=== PATIENT | female | born 1965 | race Caucasian/White ===

== ENCOUNTER 2016-12-10 21:07 | Inpatient (IN) | payer BC ==
[~2016-12-10] VITALS: Ht 152.4 cm; Wt 72.0 kg
[~2016-12-10 21:07] MED LIST: BYSTOLIC10 MG PO; CIPRO500 MG PO; CLARITIN-D 21 TABLET PO; CRESTOR20 MG PO; FOLIC ACID1 MG PO; HYDROCHLOROTHIA25 MG PO; NAPROXEN500 MG PO; PHENTERMINE HCL30 MG PO; REQUIP1 MG PO; TYLENOL EXTRA500 MG PO; VASOTEC20 MG PO; VITAMIN D50000 UNI4 PO
[2016-12-11 13:12] VITALS: BP 116/70
[2016-12-11 19:20] VITALS: BP 138/72
[2016-12-11 20:55] LABS: HEMATOCRIT 35.8 % (36.0-46.0); MCH 28.3 PG (29.0-34.0); MCHC 32.7 G/DL (30.0-36.0); MCV 86.7 FL (83-99); MEAN PLAT.VOLUME 10.1 uM^3 (9.5-12.4); PLATELET COUNT 234 K/uL (156-360); RBC DIS.WIDTH-CV 13.1 % (11.8-14.6); RBC DIS.WIDTH-SD 41.2 % (39-53); RED BLOOD COUNT 4.13 M/uL (3.80-5.20); WHITE BLOOD COUNT 16.5 K/uL (4.1-10.2)
[2016-12-11 21:19] LABS: ANION GAP 5 MEQ/L (2-14); CHLORIDE 104 MEQ/L (99-109); GFR ESTIMATE (CALCULATED) > 59 mL/min/; GLUCOSE 154 mg/dL (70-99); POTASSIUM 4.5 MEQ/L (3.7-5.4); SAMPLE HEMOLYSIS CHECK 0; SAMPLE ICTERIC CHECK 0; SAMPLE LIPEMIA CHECK 0; SODIUM 137 MEQ/L (136-147); UREA NITROGEN (BUN) 18 mg/dL (9-23)
[2016-12-11 23:45] VITALS: BP 102/56
[2016-12-12 03:33] VITALS: BP 109/59
[2016-12-12 07:18] LABS: HEMATOCRIT 32.8 % (36.0-46.0); MCH 29.4 PG (29.0-34.0); MCHC 33.8 G/DL (30.0-36.0); MCV 86.8 FL (83-99); MEAN PLAT.VOLUME 10.9 uM^3 (9.5-12.4); PLATELET COUNT 241 K/uL (156-360); RBC DIS.WIDTH-CV 12.9 % (11.8-14.6); RBC DIS.WIDTH-SD 40.7 % (39-53); RED BLOOD COUNT 3.78 M/uL (3.80-5.20); WHITE BLOOD COUNT 17.7 K/uL (4.1-10.2)
[2016-12-12 07:22] VITALS: BP 120/75
[2016-12-12 07:45] LABS: ANION GAP 7 MEQ/L (2-14); CHLORIDE 103 MEQ/L (99-109); GFR ESTIMATE (CALCULATED) > 59 mL/min/; GLUCOSE 124 mg/dL (70-99); POTASSIUM 4.2 MEQ/L (3.7-5.4); SAMPLE HEMOLYSIS CHECK 0; SAMPLE ICTERIC CHECK 0; SAMPLE LIPEMIA CHECK 0; SODIUM 137 MEQ/L (136-147); UREA NITROGEN (BUN) 16 mg/dL (9-23)
[2016-12-12 11:35] VITALS: BP 131/63
== END 2016-12-12 15:43 | disposition home or self-care (01) | DRG 743 ==
LOC: CANRESERV 21:07 → ENRESERV 21:07 → CANRESERV 21:13 → ENRESERV 12-11 03:45 → 2SOUTH 12-11 10:01 → ENRESERV 12-11 16:06 → 2EAST 12-11 19:19
PROVIDERS: Obstetrics & Gynecology Gynecologic Oncology
DX: N83.201 Unspecified ovarian cyst, right side (principal); N83.202 Unspecified ovarian cyst, left side; N80.9 Endometriosis, unspecified; E78.5 Hyperlipidemia, unspecified; F17.200 Nicotine dependence, unspecified, uncomplicated; H66.90 Otitis media, unspecified, unspecified ear; I10 Essential (primary) hypertension; J31.0 Chronic rhinitis; M19.90 Unspecified osteoarthritis, unspecified site; M54.10 Radiculopathy, site unspecified; Z82.49 Family history of ischemic heart disease and other diseases of the circulatory system
CPT/HCPCS: 36415; 80048; 85027; 86850; 86900; 86901; 86920; 88307; 94799; J0690; J1100; J1170; J2250; J2405; J2710; J2765; J3010